=== PATIENT | female | born 1970 | race Native Hawaiian/Other Pacific Islander ===

== ENCOUNTER 2021-09-15 08:15 | Outpatient (CLI) | payer OTHER, SELFPAY ==
[2021-09-15 08:25] VITALS: BP 121/76; PULSE 74; RESP 17; TEMP 36.8; O2SAT 97; BMI 41.5
[2021-09-15 09:45] VITALS: BP 131/77; PULSE 102; RESP 18; O2SAT 96
[2021-09-15 10:14] VITALS: BP 113/78; PULSE 75; RESP 17; TEMP 36.1; O2SAT 96
[2021-09-15 11:11] VITALS: BP 111/69; PULSE 74; RESP 18; TEMP 36.3; O2SAT 97
[2021-09-15 11:14] VITALS: BP 111/69; PULSE 74; RESP 18; TEMP 36.1; O2SAT 96
== END 2021-09-15 08:16 | disposition home or self-care (01) ==
LOC: OPS 08:16
PROVIDERS: PCP Nurse Practitioner Family; Visit Provider Nurse Practitioner Family
DX: U07.1 COVID-19 (principal)
CPT/HCPCS: 96365